=== PATIENT | female | born 1945 | race Caucasian/White ===

== ENCOUNTER 2017-05-26 08:13 | Outpatient (CLI) | payer MEDICARE ==
--- NOTE | 2017-05-26 16:10 | NM ---
NUCLEAR MEDICINE BRAIN IMAGING: Date: 05/26/17 HISTORY: Parkinson's disease, right arm tremors. TECHNIQUE: A DaTscan with axial tomographic images of the brain was obtained 3 hours following the intravenous administration of 5 mCi Iodine-123 Ioflupane The patient was treated with 130 mg of potassium iodide orally 1 hour prior to the injection. FINDINGS: There is loss of symmetry in the tracer uptake in the striata. The crescent shape of the striatal up take is not seen on this exam. IMPRESSION: Parkinsonian syndrome. POS: [facility]
== END 2017-05-26 08:14 | disposition home or self-care (01) ==
LOC: NM 08:13
PROVIDERS: ATTEND Psychiatry & Neurology Neurology
DX: G20 Parkinson's disease (principal)
CPT/HCPCS: 78607; A9584